=== PATIENT | female | born 1990 | race Caucasian/White ===

== ENCOUNTER 2019-01-02 16:05 | Outpatient (CLI) | payer OTHER ==
[~2019-01-02] VITALS: Ht 157.5 cm; Wt 93.4 kg
[~2019-01-02 16:05] MED LIST: AMOX1TAB10 PO; IBUP-1542 PO; NITR-58 PO; PREN1TAB12
[2019-01-02 16:32] VITALS: Ht 157.5 cm; Wt 93.4 kg
[2019-01-02 16:33] VITALS: BP 110/62; PULSE 77; RESP 20
== END 2019-01-02 18:05 | disposition home or self-care (01) ==
LOC: OBT 16:05 → L-D 16:06 → OBT 18:05
PROVIDERS: ATTEND Obstetrics & Gynecology
DX: O44.23 Partial placenta previa NOS or without hemorrhage, third trimester (principal); Z3A.38 38 weeks gestation of pregnancy
CPT/HCPCS: 76815; 76818; 81003; Z7500; G0463